=== PATIENT | female | born 1945 | race Asian ===

== ENCOUNTER 2021-12-13 09:23 | Emergency (ER) | payer OTHER ==
[~2021-12-13] VITALS: Ht 149.9 cm; Wt 60.8 kg
[2021-12-13 09:25] VITALS: BP 152/85
--- NOTE | 2021-12-13 10:05 | NUR ---
LAB AT BEDSIDE
[2021-12-13 10:13] LABS: BASOPHILS # (AUTO) 0.1 K/uL (0.00-0.22); BASOPHILS % (AUTO) 0.9 % (0.0-2.0); EOSINOPHILS # (AUTO) 0.1 K/uL (0-0.4); EOSINOPHILS % (AUTO) 2.6 % (0.0-4.0); HEMATOCRIT 36.5 % (36-48); HEMOGLOBIN 12.5 g/dL (12.0-16.0); LYMPHOCYTES # (AUTO) 1.7 K/uL (2.5-16.5); LYMPHOCYTES % (AUTO) 29.3 % (20.5-51.1); MEAN CORPUSCULAR HEMOGLOBIN 31 pg (27-31); MEAN CORPUSCULAR HGB CONC 34 g/dL (33-37); MEAN CORPUSCULAR VOLUME 90.7 fL (80-94); MONOCYTES # (AUTO) 0.5 K/uL (0.8-1.0); MONOCYTES % (AUTO) 8.8 % (1.7-9.3); NEUTROPHILS # (AUTO) 3.3 K/uL (1.8-7.7); NEUTROPHILS % (AUTO) 58.4 % (42.2-75.2); PLATELET COUNT (AUTO) 211 K/uL (140-450); RED BLOOD CELL COUNT(AUTO) 4.02 MIL/uL (4.20-5.40); RED CELL DISTRIBUTION WIDTH 13.2 % (11.6-13.7); WHITE BLOOD COUNT (AUTO) 5.6 K/uL (4.8-10.8)
[2021-12-13 10:14] LABS: APPEARANCE,URINE CLEAR (CLEAR); BILIRUBIN,URINE NEGATIVE (NEGATIVE); BLOOD, URINE NEGATIVE (NEGATIVE); COLOR,URINE YELLOW (YELLOW); LEUKOCYTE ESTERASE ,URINE NEGATIVE (NEGATIVE); NITRITE, URINE NEGATIVE (NEGATIVE); UGLUCOSE 1+ (NEGATIVE)
--- NOTE | 2021-12-13 10:18 | NUR ---
X-RAY AT BEDSIDE.
[2021-12-13 10:37] LABS: ALBUMIN 3.7 g/dL (3.4-5.0); ANION GAP 12.8 (8-16); ASPARTATE AMINOTRANSFERASE 11 U/L (15-37); CARBON DIOXIDE 24.8 mmol/L (21-32); CHLORIDE 104 mmol/L (98-107); CREATININE 1.6 mg/dL (0.6-1.3); GLUCOSE 256 mg/dL (74-106); POTASSIUM 4.6 mmol/L (3.5-5.1); SODIUM SERUM 137 mmol/L (136-145); TOTAL BILIRUBIN 0.3 mg/dL (0.0-1.0); UREA NITROGEN, BLOOD 27 mg/dL (7-18)
--- NOTE | 2021-12-13 10:55 | NUR ---
76 Y/O FEMALE BIB DAUGHTER FROM HOME C/O DIZZINESS, FATIGUE AND SHORTNESS OF BREATH X 1 WEEK. PT STATED SHE HAD 4TH DOSE OF COVID VACCINE 12/01/21 AND BEGAN FEELING SYPTOMS X 1 WEEK AGO. UNSURE OF VACCINE MFR. STATES SHE DID NOT HAVE THESE SYMPTOMS WITH FIRST 3 DOSES. DENIES FEVER, CHILLS, NVD, CP. PLACED PT IN GOWN AND ON OBSTETRICS NURSE PRACTITIONER, SKIN IS WARM AND DRY, RESIRATIONS EVEN AND UNLABORED. MYRA SIDE RAILS UP AND BED IN LOWEST POSITION. 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
--- NOTE | 2021-12-13 11:21 | NUR ---
DR GARRETT AT BEDSIDE FOR EVALUATION
[2021-12-13] MEDS ORDERED: NACL 0.9% 1,000 ML IV ONE (11:45)
[2021-12-13 13:40] VITALS: BP 133/72
== END 2021-12-13 13:40 | disposition home or self-care (01) ==
LOC: MED 09:23
DX: R53.83 Other fatigue (principal); E86.0 Dehydration; I10 Essential (primary) hypertension; E11.9 Type 2 diabetes mellitus without complications; Z79.4 Long term (current) use of insulin; Z79.899 Other long term (current) drug therapy
CPT/HCPCS: 36415; 71045; 80053; 81003; 84484; 85025; 93005; 96360; 99285; Q0092; J7030

== ENCOUNTER 2022-09-05 13:20 | Emergency (ER) | payer OTHER ==
[~2022-09-05] VITALS: Ht 142.2 cm; Wt 54.4 kg
[2022-09-05 13:34] VITALS: BP 120/84
--- NOTE | 2022-09-05 13:38 | NUR ---
DIFFICULTY BREATHING X 2 WEEKS, HEADACHE X 1 WEEK, VOMITING X 2 DAYS, GENERALIZED WEAKNESS. DENIES FEVER, DENIES SICK CONTACT, DENIES RECENT TRAVEL. PMH: KARLA
--- NOTE | 2022-09-05 14:20 | NUR ---
EPatient being evaluated by physician at bedside.
[2022-09-05] MEDS ORDERED: NACL 0.9% 1,000 ML IV ONE (14:25)
[2022-09-05] MEDS ORDERED: ONDANSETRON 4 MG/2 ML VIAL IVP ONE (14:25)
[2022-09-05] MEDS ORDERED: ACETAMINOPHEN EXTRA STRENGTH 500 MG TAB PO ONE (14:25)
[2022-09-05 14:59] LABS: BASOPHILS % (AUTO) 0.2 % (0.0-2.0); EOSINOPHILS % (AUTO) 0.5 % (0.0-4.0); HEMATOCRIT 37.9 % (36-48); HEMOGLOBIN 13.1 g/dL (12.0-16.0); LYMPHOCYTES # (AUTO) 1.5 K/uL (2.5-16.5); LYMPHOCYTES % (AUTO) 17.8 % (20.5-51.1); MEAN CORPUSCULAR HEMOGLOBIN 31 pg (27-31); MEAN CORPUSCULAR HGB CONC 35 g/dL (33-37); MEAN CORPUSCULAR VOLUME 89.5 fL (80-94); MONOCYTES # (AUTO) 0.4 K/uL (0.8-1.0); MONOCYTES % (AUTO) 4.8 % (1.7-9.3); NEUTROPHILS # (AUTO) 6.4 K/uL (1.8-7.7); NEUTROPHILS % (AUTO) 76.7 % (42.2-75.2); PLATELET COUNT (AUTO) 279 K/uL (140-450); RED BLOOD CELL COUNT(AUTO) 4.24 MIL/uL (4.20-5.40); RED CELL DISTRIBUTION WIDTH 13.3 % (11.6-13.7); WHITE BLOOD COUNT (AUTO) 8.3 K/uL (4.8-10.8)
--- NOTE | 2022-09-05 15:11 | NUR ---
X-RAY AT BEDSIDE.
[2022-09-05 15:32] LABS: ALBUMIN 4.1 g/dL (3.4-5.0); ANION GAP 14.1 (8-16); ASPARTATE AMINOTRANSFERASE 22 U/L (15-37); CARBON DIOXIDE 25.6 mmol/L (21-32); CHLORIDE 99 mmol/L (98-107); CREATININE 0.9 mg/dL (0.6-1.3); GLUCOSE 61 mg/dL (74-106); POTASSIUM 3.7 mmol/L (3.5-5.1); SODIUM SERUM 135 mmol/L (136-145); TOTAL BILIRUBIN 0.4 mg/dL (0.0-1.0); UREA NITROGEN, BLOOD 20 mg/dL (7-18)
[2022-09-05 15:41] LABS: LIPASE 157 U/L (73-393)
--- NOTE | 2022-09-05 16:15 | NUR ---
Called [employer] for [employer] [place] pre planning advisor number [phone]. explained medications to patient. all questions addressed.
[2022-09-05] MEDS ORDERED: AZIT250T4 PO (16:29)
[2022-09-05] MEDS ORDERED: ONDA-188 PO (16:29)
[2022-09-05] MEDS ORDERED: AMOX-1230 PO (16:29)
[2022-09-05] MEDS ORDERED: ACET-2619 PO (16:30)
[2022-09-05 17:18] LABS: APPEARANCE,URINE CLEAR (CLEAR); BILIRUBIN,URINE NEGATIVE (NEGATIVE); BLOOD, URINE NEGATIVE (NEGATIVE); COLOR,URINE YELLOW (YELLOW); LEUKOCYTE ESTERASE ,URINE NEGATIVE (NEGATIVE); NITRITE, URINE NEGATIVE (NEGATIVE); PH,URINE 6.5 (5.0-9.0); UGLUCOSE NEGATIVE (NEGATIVE)
--- NOTE | 2022-09-05 17:40 | NUR ---
spoke with Consuelo (daughter), states she will be here in 20 minutes to pick her mother up
--- NOTE | 2022-09-05 18:10 | NUR ---
IV removed, catheter intact and site benign. Applied folded 4x4 gauze and tape to stop bleeding.
[2022-09-05 18:15] VITALS: BP 142/79
--- NOTE | 2022-09-05 18:18 | NUR ---
Patient discharged with v/s stable. Written and verbal after care instructions given and explained. Patient alert, oriented and verbalized understanding of instructions. Ambulatory with steady gait. All questions addressed prior to discharge. ID band removed. Patient advised to follow up with PMD. Rx of tylenol, Amoxicillin, Zithromax z-pack, Zofran given. Patient educated on indication of medication including possible reaction and side effects. Opportunity to ask questions provided and answered.
== END 2022-09-05 18:15 | disposition home or self-care (01) ==
LOC: MED 13:20
DX: J18.1 Lobar pneumonia, unspecified organism (principal); Z20.822 Contact with and (suspected) exposure to COVID-19; E86.0 Dehydration; Z79.899 Other long term (current) drug therapy
CPT/HCPCS: 36415; 71045; 80053; 81003; 82948; 83690; 83880; 84484; 85025; 87426; 87804; 93005; 96361; 96374; 99285; J2405; Q0092; J7030

== ENCOUNTER 2022-09-08 13:39 | Inpatient (IN) | payer OTHER ==
[~2022-09-08] VITALS: Ht 142.2 cm; Wt 55.8 kg
[~2022-09-08 13:39] MED LIST: ACET-2619 PO; AMOX-1230 PO; AZIT250T4 PO; ONDA-188 PO
[2022-09-08 13:47] VITALS: BP 140/87
--- NOTE | 2022-09-08 13:55 | NUR ---
pt wheeled to bed 02, jessenia bingham aware of pt status.
--- NOTE | 2022-09-08 13:55 | NUR ---
MICHAEL WILSONR TO ER BED 2
[2022-09-08] MEDS ORDERED: NACL 0.9% 1,000 ML IV SCH (14:10)
[2022-09-08] MEDS ORDERED: cefTRIAXone 1,000 MG in DEXT 5% MINI-BAG PLUS 50 ML IV ONE (14:10)
[2022-09-08] MEDS ORDERED: cefTRIAXone 1,000 MG VIAL ONE (14:41)
[2022-09-08 14:43] LABS: BASOPHILS % (AUTO) 0.5 % (0.0-2.0); EOSINOPHILS # (AUTO) 0.2 K/uL (0-0.4); EOSINOPHILS % (AUTO) 2.9 % (0.0-4.0); HEMATOCRIT 37.5 % (36-48); HEMOGLOBIN 13.2 g/dL (12.0-16.0); LYMPHOCYTES # (AUTO) 1.7 K/uL (2.5-16.5); LYMPHOCYTES % (AUTO) 25.2 % (20.5-51.1); MEAN CORPUSCULAR HEMOGLOBIN 31 pg (27-31); MEAN CORPUSCULAR HGB CONC 35 g/dL (33-37); MEAN CORPUSCULAR VOLUME 88.7 fL (80-94); MONOCYTES # (AUTO) 0.5 K/uL (0.8-1.0); MONOCYTES % (AUTO) 6.9 % (1.7-9.3); NEUTROPHILS # (AUTO) 4.3 K/uL (1.8-7.7); NEUTROPHILS % (AUTO) 64.5 % (42.2-75.2); PLATELET COUNT (AUTO) 275 K/uL (140-450); RED BLOOD CELL COUNT(AUTO) 4.23 MIL/uL (4.20-5.40); RED CELL DISTRIBUTION WIDTH 13.2 % (11.6-13.7); WHITE BLOOD COUNT (AUTO) 6.7 K/uL (4.8-10.8)
[2022-09-08 15:11] LABS: ALBUMIN 3.8 g/dL (3.4-5.0); ANION GAP 14.8 (8-16); ASPARTATE AMINOTRANSFERASE 13 U/L (15-37); CARBON DIOXIDE 24.7 mmol/L (21-32); CHLORIDE 97 mmol/L (98-107); GLUCOSE 166 mg/dL (74-106); POTASSIUM 4.5 mmol/L (3.5-5.1); SODIUM SERUM 132 mmol/L (136-145); TOTAL BILIRUBIN 0.4 mg/dL (0.0-1.0); UREA NITROGEN, BLOOD 17 mg/dL (7-18)
[2022-09-08] MEDS ORDERED: NACL 0.9% 1,000 ML IV ONE (15:20)
--- NOTE | 2022-09-08 15:38 | NUR ---
RESTING IN BED, UNDERSTANDS AND FOLLOWS INSTRUCTIONS BUT WITH GEN WEAKNESS
[2022-09-08 16:51] LABS: APPEARANCE,URINE CLEAR (CLEAR); BILIRUBIN,URINE NEGATIVE (NEGATIVE); BLOOD, URINE NEGATIVE (NEGATIVE); COLOR,URINE YELLOW (YELLOW); LEUKOCYTE ESTERASE ,URINE NEGATIVE (NEGATIVE); NITRITE, URINE NEGATIVE (NEGATIVE); PH,URINE 6.5 (5.0-9.0); UGLUCOSE NEGATIVE (NEGATIVE)
[2022-09-08] MEDS ORDERED: INSU100I7 SUBQ (16:57)
[2022-09-08] MEDS ORDERED: ACETAMINOPHEN 325 MG TAB PO PRN (17:20)
[2022-09-08] MEDS ORDERED: MORPHINE SULFATE 4 MG/ML SYR IVP PRN (17:20)
[2022-09-08] MEDS ORDERED: ONDANSETRON 4 MG/2 ML VIAL IVP PRN (17:20)
[2022-09-08] MEDS: NACL 0.9% 1,000 ML IV SCH (17:20)
[2022-09-08] MEDS ORDERED: HYDROcodone/APAP 5/325 MG 1 TAB TAB PO PRN (17:20)
[2022-09-08] MEDS ORDERED: GEMF-65 PO (17:32)
[2022-09-08] MEDS ORDERED: METF-352 PO (17:32)
[2022-09-08] MEDS ORDERED: INSU100S54 SUBQ (17:32)
[2022-09-08] MEDS ORDERED: CELE-136 PO (17:32)
[2022-09-08] MEDS ORDERED: AZIT250T11 PO (17:32)
[2022-09-08] MEDS ORDERED: CLOP75TA55 PO (17:32)
[2022-09-08] MEDS ORDERED: OSELTAMIVIR PHOSPHATE 75 MG CAP PO SCH (21:00)
[2022-09-08] MEDS ORDERED: OSELTAMIVIR PHOSPHATE 30 MG CAP PO SCH (21:00)
[2022-09-08] MEDS ORDERED: OSELTAMIVIR PHOSPHATE 75 MG CAP ONE (22:57)
--- NOTE | 2022-09-09 01:05 | NUR ---
Patient will be admitted to care of [facility]. Admited to [facility]. Will go to room. Belongings list completed. Report to .
[2022-09-09] MEDS: NACL 0.9% 1,000 ML IV SCH (01:11)
[2022-09-09 02:48] VITALS: BP 135/75
[2022-09-09 06:49] LABS: BASOPHILS % (AUTO) 0.8 % (0.0-2.0); EOSINOPHILS # (AUTO) 0.4 K/uL (0-0.4); EOSINOPHILS % (AUTO) 6.7 % (0.0-4.0); HEMATOCRIT 35.6 % (36-48); HEMOGLOBIN 12.6 g/dL (12.0-16.0); LYMPHOCYTES # (AUTO) 1.5 K/uL (2.5-16.5); LYMPHOCYTES % (AUTO) 28.3 % (20.5-51.1); MEAN CORPUSCULAR HEMOGLOBIN 31 pg (27-31); MEAN CORPUSCULAR HGB CONC 35 g/dL (33-37); MEAN CORPUSCULAR VOLUME 88.6 fL (80-94); MONOCYTES # (AUTO) 0.4 K/uL (0.8-1.0); MONOCYTES % (AUTO) 6.6 % (1.7-9.3); NEUTROPHILS # (AUTO) 3.1 K/uL (1.8-7.7); NEUTROPHILS % (AUTO) 57.6 % (42.2-75.2); PLATELET COUNT (AUTO) 238 K/uL (140-450); RED BLOOD CELL COUNT(AUTO) 4.02 MIL/uL (4.20-5.40); RED CELL DISTRIBUTION WIDTH 13.2 % (11.6-13.7); WHITE BLOOD COUNT (AUTO) 5.4 K/uL (4.8-10.8)
[2022-09-09 07:07] LABS: ANION GAP 10.6 (8-16); CARBON DIOXIDE 26.4 mmol/L (21-32); CHLORIDE 107 mmol/L (98-107); CREATININE 0.8 mg/dL (0.6-1.3); GLUCOSE 153 mg/dL (74-106); SODIUM SERUM 140 mmol/L (136-145); UREA NITROGEN, BLOOD 15 mg/dL (7-18)
[2022-09-09 08:00] VITALS: BP 125/74
[2022-09-09] MEDS ORDERED: OSELTAMIVIR PHOSPHATE 30 MG CAP PO SCH (09:00)
[2022-09-09] MEDS ORDERED: DOCUSATE SODIUM 100 MG GELCAP PO SCH (09:00)
--- NOTE | 2022-09-09 09:32 | NUR ---
PATIENT HAS BEEN SCREENED AND CATEGORIZED MODERATE NUTRITION RISK. PATIENT WILL BE SEEN WITHIN 3-5 DAYS OF ADMISSION. [address]
--- NOTE | 2022-09-09 10:54 | NUR ---
DC PLANNING PT POSITIVE FOR INFLUENZA THEREFORE, JACK OUTREACHED TO PTS DAUGHTER TAM, TO GATHER COLLAT INFO. NO ANSWER, THEREFORE MESSAGE WAS LEFT REQUESTING A RETURN PHONE CALL.
[2022-09-09 16:00] VITALS: BP 116/71
--- NOTE | 2022-09-09 16:14 | NUR ---
Katie, daughter, call she says her phone number is [phone]. She says she would like an update if possible anytime.
[2022-09-09] MEDS ORDERED: TAM75 PO (16:29)
--- NOTE | 2022-09-09 18:25 | NUR ---
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 She verbalizes understanding.
--- NOTE | 2022-09-09 19:03 | NUR ---
Intact 20 gauge intravenous catheter tip removal from left forearm with identification bracelet. Given instructions for home and a copy with daughter, Katie. Family member and patient verbalize understanding of teaching and follow up. Patient sent with caregiver via private auto and is ambulatory with a steady gait.
--- NOTE | 2022-09-09 19:07 | NUR ---
Daughter request to update pharmacy to [facility] [place] [id number] area code complete at this time.
--- NOTE | 2022-09-14 14:59 | NUR ---
CALLED DR [facility]ON[facility] LOCATED AT [address] [place] [address]. SPOKE WITH MARYAM WHO WAS ABLE TO INFORM ME THAT PATIENT HAS A FOLLOW UP APPOINTMENT FOR 09/15/2022 AT 0945.
== END 2022-09-09 18:55 | disposition home or self-care (01) | DRG 52 ==
LOC: MED 13:39 → MMU 17:24 → OBSVTOIN 17:25 → MTU 23:41
PROVIDERS: ADMIT Student in an Organized Health Care Education/Training Program; ATTEND Student in an Organized Health Care Education/Training Program
DX: G93.41 Metabolic encephalopathy (principal); E87.1 Hypo-osmolality and hyponatremia; E86.1 Hypovolemia; E86.0 Dehydration; J10.1 Influenza due to other identified influenza virus with other respiratory manifestations; E11.9 Type 2 diabetes mellitus without complications; E78.5 Hyperlipidemia, unspecified; I10 Essential (primary) hypertension; Z20.822 Contact with and (suspected) exposure to COVID-19; Z79.4 Long term (current) use of insulin; Z79.899 Other long term (current) drug therapy
CPT/HCPCS: 36415; 71045; 80048; 80053; 81003; 83605; 83735; 83880; 84484; 85025; 87040; 87081; 87086; 93005; 96361; 96365; 99285; J0696; J1644; J7060; Q0092

== ENCOUNTER 2023-01-08 10:54 | Emergency (ER) | payer OTHER ==
[~2023-01-08] VITALS: Ht 144.8 cm; Wt 58.5 kg
[~2023-01-08 10:54] MED LIST changes: +CELE-136 PO; +CLOP75TA55 PO; +GEMF-65 PO; +INSU100I7 SUBQ; +INSU100S54 SUBQ; +METF-352 PO; +TAM75 PO
[2023-01-08 11:13] VITALS: BP 109/78; PULSE 74; RESP 16; TEMP 98.2; O2SAT 99
[2023-01-08 12:21] LABS: FLU A ANTIGEN negative (NEGATIVE); FLU B ANTIGEN negative (NEGATIVE)
[2023-01-08] MEDS ORDERED: BENZ-300 PO (12:48)
[2023-01-08] MEDS ORDERED: ACET-10509 PO (12:48)
[2023-01-08] MEDS ORDERED: AZIT1PDR6 PO (12:48)
[2023-01-08] MEDS ORDERED: BENZ200C4 PO (12:48)
[2023-01-08 13:16] VITALS: BP 109/78; PULSE 74; RESP 16; TEMP 98.2; O2SAT 99
== END 2023-01-08 13:16 | disposition home or self-care (01) ==
LOC: MED 10:54
DX: U07.1 COVID-19 (principal); E11.9 Type 2 diabetes mellitus without complications; I10 Essential (primary) hypertension; Z79.4 Long term (current) use of insulin; Z79.899 Other long term (current) drug therapy
CPT/HCPCS: 71045; 87426; 87804; 99284; Q0092

== ENCOUNTER 2023-01-10 14:04 | Emergency (ER) | payer OTHER ==
[~2023-01-10] VITALS: Ht 142.2 cm; Wt 59.0 kg
[~2023-01-10 14:04] MED LIST changes: +ACET-10509 PO; +AZIT1PDR6 PO; +BENZ-300 PO; +BENZ200C4 PO
[2023-01-10 14:11] VITALS: BP 113/73; PULSE 68; RESP 20; TEMP 98.1; O2SAT 99
[2023-01-10] MEDS ORDERED: BISMUTH SUBSALICYLATE 15 ML UDBTL PO ONE (14:45)
[2023-01-10] MEDS ORDERED: ONDANSETRON 4 MG/2 ML VIAL IVP ONE (14:45)
[2023-01-10] MEDS ORDERED: NACL 0.9% 1,000 ML IV ONE (14:45)
[2023-01-10] MEDS ORDERED: LOPERAMIDE 2 MG CAP PO ONE (14:45)
[2023-01-10] MEDS ORDERED: BENZONATATE 100 MG CAPLF PO PRN (14:45)
[2023-01-10] MEDS ORDERED: GUAI118L81 PO (15:14)
[2023-01-10] MEDS ORDERED: LOPE1TAB14 PO (15:15)
[2023-01-10] MEDS ORDERED: ONDA-188 PO (15:15)
[2023-01-10] MEDS ORDERED: BISMUTH SUBSALICYLATE 15 ML UDBTL PO SCH (15:22)
[2023-01-10 16:17] VITALS: BP 122/64; PULSE 74; RESP 17
[2023-01-10 16:18] VITALS: O2SAT 98
== END 2023-01-10 16:17 | disposition home or self-care (01) ==
LOC: MED 14:04
DX: U07.1 COVID-19 (principal); R19.7 Diarrhea, unspecified; R11.2 Nausea with vomiting, unspecified; Z79.899 Other long term (current) drug therapy
CPT/HCPCS: 96361; 96374; 99284; J2405; J7030